=== PATIENT | male | born 1985 | race Caucasian/White ===

== ENCOUNTER 2017-04-09 21:13 | Emergency (ER) | payer SELFPAY ==
[2017-04-09 21:25] VITALS: BP 143/86; RESP 16; TEMP 98.1
--- NOTE | 2017-04-09 21:25 | EDPHY ---
H & P Source: Patient Exam Limitations: No limitations - Personal History Tetanus Vaccine Date: WITHIN 10 YRS - Medical/Surgical History Hx Asthma: Yes Hx Chronic Respiratory Disease: No Hx Diabetes: No Hx Cardiac Disease: No Hx Renal Disease: No Hx Cirrhosis: No Hx Alcoholism: No Hx HIV/AIDS: No Hx Splenectomy or Spleen Trauma: No - Social History Smoking Status: Current every day smoker Time Seen by Provider: 04/09/17 21:24 HPI/ROS: HPI: This is a 31-year-old male who presents with Chief Complaint: Right elbow pain Location: Right elbow Quality: Pain Duration: Several days Signs and Symptoms: No bleeding, no radiation, no numbness, no weakness, no tingling, no incontinence, + decreased range of motion, no swelling, + pain Timing: Intermittent episodes Severity: 08/15 Context: Patient is right-hand dominant, presents with several day history of lateral right elbow pain that is worsened with certain movements and radiates into his mid forearm. 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 Patient missed work on Monday and is requesting a work note. He obtained a tennis elbow brace that he has been wearing with mild improvement. Denies any trauma/injury/paresthesias/radiation/weakness. Has not tried any [id number] medications or applied ice. Modifying Factors: None Comment: ROS: see HPI Constitutional: No fever, no chills, no weight loss Eyes: No blurred vision Respiratory: No shortness of breath, no cough Cardiovascular: No chest pain Gastrointestinal: No nausea, no vomiting no diarrhea Genitourinary: No dysuria Extremities: No myalgias Neurologic: No weakness, no numbness Skin: No rashes Hematologic: No bruising, no bleeding CONSTITUTIONAL: Adult white male, awake and alert, no obvious distress HEENT: Atraumatic and normocephalic. PULMONARY/CHEST: Symmetrical and nontender. no crepitus. Clear to auscultation bilaterally. Good air movement. No accessory muscle usage. ABDOMEN: Soft, nondistended, nontender, no ecchymosis. EXTREMITIES: 2/2 pulses, strength 5/5, right ELBOW: Full extension to 180, flexion to 150, no tenderness over medial epicondyle, moderate tenderness over lateral epicondyle, no effusion, pain with forced extension and supination of forearm. DIP/PIP/MCP flexion/extension intact with good light touch sensation. no deformities, no clubbing, no cyanosis or edema. NEUROLOGICAL: no focal neuro deficits. GCS 15. Light touch sensation intact. SKIN: Warm and dry, no erythema. no rash. Good capillary refill. (Mirna Katz) Constitutional: Initial Vital Signs Temperature (C) 36.7 C 04/09/17 21:23 Heart Rate 81 04/09/17 21:23 Respiratory Rate 16 04/09/17 21:23 Blood Pressure 143/86 H 04/09/17 21:23 O2 Sat (%) 97 04/09/17 21:23 O2 Delivery Mode Room Air Allergies/Adverse Reactions: amoxicillin trihydrate [From Augmentin] Allergy (Intermediate, Verified 21:22) Vomiting potassium clavula *RETIRED-10/17/11 [From Augmentin] Allergy (Intermediate, Verified 04/09/17 21:22) Vomiting Home Medications: Medication Instructions Recorded NO HOME MEDS 11/18/12 Medical Decision Making - Diagnostics Imaging Results: Imaging Impressions Elbow X-Ray 04/09/17 21:38 Impression: Right elbow demonstrates no joint effusion, degenerative changes, or definite fracture. Procedures: The patient was evaluated and managed by the physician case management assistant. I have reviewed this chart and I agree with the findings and plan of care as documented , as indicated by my signature. I am the secondary supervising physician. ( Amelie Torres) Procedure: Splint placement. A right elbow sling was applied by the Emergency Room equine pharmacology technician. After application of the splint I returned and re-examined the patient. The splint was adequately immobilizing the joint and distal to the splint the patient's circulation and sensation was intact. (Mirna Katz) ED Course/Re-evaluation: X-ray and oral medications ordered Given Ultram 100 mg X-ray my read shows no signs of effusion, fracture, dislocation, osteophyte No signs of neurovascular compromise/tenting of skin/compartment syndrome/ extremities and joints examined above and below area of concern and are neurovascularly intact/gouty arthropathy/septic arthritis. Rice rice therapy, Ortho follow-up if symptoms persist for intra-articular steroid injection This patient was seen under the supervision of my secondary supervising physician. I evaluated care for this patient independently. (Mirna Katz) Differential Diagnosis: Differential diagnosis includes but is not limited to radial head fracture, olecranon fracture, elbow dislocation, epicondylitis, olecranon bursitis. (Mirna Katz) - Data Points Medications Given: Discontinued Medications Oxycodone/Acetaminophen (Percocet 5/325mg Prepack#4) 1 btl TAKEHOME EDNOW ONE Stop: 04/09/17 22:33 Last Admin: 04/09/17 22:38 Dose: 1 btl Tramadol HCl (Ultram) 100 mg PO EDNOW ONE Stop: 04/09/17 21:39 Last Admin: 04/09/17 21:49 Dose: 100 mg Departure - Departure Disposition: Home, Routine, Self-Care Clinical Impression: Medial epicondylitis of right elbow Condition: Good Instructions: Tennis Elbow (ED) Additional Instructions: Limit use of your right upper extremity until pain free. Wear the tennis elbow band and/or sling until pain free or seen by orthopedics for follow up. Take Tylenol 650 mg every 4 hours and/or Ibuprofen 600 mg every 8 hours with food as needed for pain. Use Percocet every 6 hours as needed for severe/break through pain. Do not use Tylenol and Percocet concomitantly. Apply ice for 30 minutes at a time; 2-3 times per day for the next 1-2 days. Follow up with Orthopedics in 1-2 weeks if symptoms persist at which time they will evaluate and recommend with you if conservative management versus MRI outpatient is indicated. Referrals: Crow Potter MD [Medical Doctor] - As per Instructions Stand Alone Forms: Work Excuse
[2017-04-09] MEDS ORDERED: traMADol 50 MG TAB PO ONE (21:38)
[2017-04-09] MEDS ORDERED: OXYCODONE/APAP 5/325MG PREPACK#4 BTL TAKEHOME ONE (22:32)
[2017-04-09 22:40] VITALS: PULSE 78; O2SAT 98
== END 2017-04-09 22:40 | disposition home or self-care (01) ==
DX: M77.01 Medial epicondylitis, right elbow (principal); F17.200 Nicotine dependence, unspecified, uncomplicated; J45.909 Unspecified asthma, uncomplicated
CPT/HCPCS: A4565

== ENCOUNTER 2017-07-01 00:21 | Emergency (ER) | payer MEDICAID, OTHER ==
[2017-07-01 00:26] VITALS: BP 136/69
[2017-07-01] MEDS ORDERED: IBUPROFEN 600 MG TAB PO ONE (00:32)
--- NOTE | 2017-07-01 00:39 | EDPHY ---
H & P Stated Complaint: R ankle pain Time Seen by Provider: 07/01/17 00:39 HPI/ROS: HPI CHIEF COMPLAINT: Right ankle pain HISTORY OF PRESENT ILLNESS: Patient is a 31-year-old male, is otherwise healthy with no significant medical history presents emergency room with right lateral ankle pain. Patient states that he rolled his right ankle while putting up at 10 at work. States he had more of an inversion mechanism. He denies any other areas of injury. Denies chest pain or shortness of breath. Denies falling or knee pain. Main complaint right lateral ankle pain. Past Medical History: Denies significant medical history Past Surgical History: Denies significant surgical history Social History: Denies daily use of drugs or alcohol. Smokes tobacco daily. Family History: Noncontributory ROS REVIEW OF SYSTEMS: A comprehensive 10 point review of systems is otherwise negative aside from elements mentioned in the history of present illness. Exam Constitutional triage nursing summary reviewed, vital signs reviewed, awake/ alert. Eyes normal conjunctivae and sclera, EOMI, PERRLA. HENT normal inspection, atraumatic, moist mucus membranes, no epistaxis, neck supple/ no meningismus, no raccoon eyes. Respiratory clear to auscultation bilaterally, normal breath sounds, no respiratory distress, no wheezing. Cardiovascular rate normal, regular rhythm, no murmur, no edema, distal pulses normal. Gastrointestinal soft, non-tender, no rebound, no guarding, normal bowel sounds, no distension, no pulsatile mass. Genitourinary no CVA tenderness. Musculoskeletal right ankle: Mild tender palpation over the lateral right ankle. It Is neurovascularly intact no significant swelling. Good cap refill, good distal pulse, full range of motion, Achilles intact, no signs of compartment syndrome, no midline vertebral tenderness, full range of motion, no calf swelling, no tenderness of extremities, no meningismus, good pulses, neurovascularly intact. Skin pink, warm, & dry, no rash, skin atraumatic. Neurologic awake, alert and oriented x 3, AAOx3, moves all 4 extremities equally, motor intact, sensory intact, CN II-XII intact, normal cerebellar, normal vision, normal speech. Psychiatric normal mood/affect. Heme/Lymph/Immune no lymphadenopathy. Differential Diagnosis: Includes but is not limited to in a particular order ankle sprain, ankle contusion, soft tissue injury, ankle fracture, ligamentous injury Medical Decision Making: Plan for this patient ibuprofen here in the emergency room p.o.. Additionally x-ray right ankle. Re-evaluation: X-ray the right ankle reviewed. Shows no evidence of fracture. Soft tissue swelling noted. Ankle sprain. Recommend he ice it, keep it elevated, walking boot and crutches for comfort and protection. Follow up with Orthopedics as needed. Additionally understands return emergency room if he has any worsening symptoms questions or concerns. Source: Patient - Personal History Current Tetanus Diphtheria and Acellular Pertussis (TDAP): Unsure Tetanus Vaccine Date: WITHIN 10 YRS - Medical/Surgical History Hx Asthma: Yes Hx Chronic Respiratory Disease: No Hx Diabetes: No Hx Cardiac Disease: No Hx Renal Disease: No Hx Cirrhosis: No Hx Alcoholism: No Hx HIV/AIDS: No Hx Splenectomy or Spleen Trauma: No Other PMH: asthma, - Social History Smoking Status: Current every day smoker Constitutional: Initial Vital Signs Temperature (C) 36.8 C 07/01/17 00:23 Heart Rate 66 07/01/17 00:23 Respiratory Rate 12 07/01/17 00:23 Blood Pressure 136/69 H 07/01/17 00:23 O2 Sat (%) 99 07/01/17 00:23 O2 Delivery Mode Room Air Allergies/Adverse Reactions: amoxicillin trihydrate [From Augmentin] Allergy (Intermediate, Verified 00:35) Vomiting potassium clavula *RETIRED-10/17/11 [From Augmentin] Allergy (Intermediate, Verified 07/01/17 00:35) Vomiting Home Medications: Medication Instructions Recorded NO HOME MEDS 11/18/12 Ibuprofen [Motrin (*)] 800 mg PO Q6-8PRN #10 tab 07/01/17 Medical Decision Making - Data Points Medications Given: Discontinued Medications Ibuprofen (Motrin) 600 mg PO EDNOW ONE Stop: 07/01/17 00:33 Last Admin: 07/01/17 00:39 Dose: 600 mg Departure - Departure Disposition: Home, Routine, Self-Care Clinical Impression: Ankle sprain Qualifiers: Encounter type: initial encounter Involved ligament of ankle: unspecified ligament Laterality: right Qualified Code(s): S93.401A - Sprain of unspecified ligament of right ankle, initial encounter Condition: Good Instructions: Ankle Sprain (ED) Additional Instructions: 1. Ice her ankle over the next 48 hr. 2. Ibuprofen for pain control and inflammation. 3. Follow up with Orthopedics as needed. 4. Walking boot and crutches for comfort. Referrals: NONE *PRIMARY CARE P,. [Primary Care Provider] - As per Instructions Eliud Butler MD [Medical Doctor] - As per Instructions Prescriptions: Ibuprofen [Motrin (*)] 800 mg PO Q6-8PRN #10 tab
== END 2017-07-01 01:23 | disposition home or self-care (01) ==
DX: S93.401A Sprain of unspecified ligament of right ankle, initial encounter (principal); F17.200 Nicotine dependence, unspecified, uncomplicated; J45.909 Unspecified asthma, uncomplicated; X50.9XXA Other and unspecified overexertion or strenuous movements or postures, initial encounter; Y92.69 Other specified industrial and construction area as the place of occurrence of the external cause; Y99.0 Civilian activity done for income or pay; Y93.89 Activity, other specified
CPT/HCPCS: L4386

== ENCOUNTER 2017-08-19 20:59 | Emergency (ER) | payer SELFPAY ==
[2017-08-19] MEDS ORDERED: IBUPROFEN 200 MG TAB PO ONE (22:13)
[2017-08-19] MEDS ORDERED: DIAZEPAM 5 MG TAB PO ONE (22:13)
[2017-08-19] MEDS ORDERED: DIAZEPAM 5 MG PREPACK#4 BTL TAKEHOME ONE (22:13)
[2017-08-19] MEDS ORDERED: LIDOCAINE 4%/MENTHOL 1% PATCH TD ONE (22:14)
--- NOTE | 2017-08-19 22:16 | EDPHY ---
H & P Stated Complaint: Mid back pain, lifting tent on a ladder, "felt a pop" Time Seen by Provider: 08/19/17 21:58 HPI/ROS: HPI: The patient presents with midthoracic back pain which began at approximately 4:30 p.m. 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 He felt immediate onset of sharp pain in the midline of his thoracic spine. He also heard a pop. He has had ongoing pain ever since so comes in for evaluation. He describes a constant pain which is worse with movement and relieved when he sits in a chair. He does not have any numbness or tingling of his arms or legs. He does not have any weakness in his arms or legs. He has no prior back injuries. REVIEW OF SYSTEMS Constitutional: No fever, no chills. Eyes: No discharge. ENT: No sore throat. Cardiovascular: No chest pain, no palpitations. Respiratory: No cough, no shortness of breath. Gastrointestinal: No abdominal pain, no vomiting. Genitourinary: No hematuria. Musculoskeletal: No back pain. Skin: No rashes. Neurological: No headache. PMHx: Healthy TRAUMA PHYSICAL General Appearance: Alert, no distress Head: Atraumatic Eyes: Pupils equal, round, reactive ENT, Mouth: No hemotypanium, no oral trauma Neck: Non- tender, trachea midline Respiratory: No chest wall tenderness, no subcutaneous air, lungs clear bilaterallty Cardiovascular: Regular rate and rhythm Abdomen: Abdomen is soft and non-tender, pelvis stable Skin: No lacerations, No abrasion Back: There is tenderness at the midthoracic spine at the midline with paraspinal tenderness bilaterally which is less severe Extremities: Non-tender, full range of motion Neurological: A&Ox3, GCS=15,normal motor function with 5/5 strength in all 4 extremities, normal sensory exam Source: Patient Exam Limitations: No limitations - Personal History Current Tetanus Diphtheria and Acellular Pertussis (TDAP): Yes Tetanus Vaccine Date: WITHIN 10 YRS - Medical/Surgical History Hx Asthma: Yes Hx Chronic Respiratory Disease: No Hx Diabetes: No Hx Cardiac Disease: No Hx Renal Disease: No Hx Cirrhosis: No Hx Alcoholism: No Hx HIV/AIDS: No Hx Splenectomy or Spleen Trauma: No Other PMH: asthma, - Social History Smoking Status: Current every day smoker Constitutional: Initial Vital Signs Temperature (C) 36.7 C 08/19/17 21:00 Heart Rate 72 08/19/17 21:00 Respiratory Rate 18 08/19/17 21:00 Blood Pressure 137/65 H 08/19/17 21:00 O2 Sat (%) 95 08/19/17 21:00 O2 Delivery Mode Room Air Allergies/Adverse Reactions: amoxicillin trihydrate [From Augmentin] Allergy (Intermediate, Verified 21:02) Vomiting potassium clavula *RETIRED-10/17/11 [From Augmentin] Allergy (Intermediate, Verified 08/19/17 21:02) Vomiting Home Medications: Medication Instructions Recorded NO HOME MEDS 11/18/12 Ibuprofen [Motrin (*)] 800 mg PO Q6-8PRN #10 tab 07/01/17 Medical Decision Making Differential Diagnosis: 32-year-old male who with lifting injury which occurred about 6 hr ago now with ongoing midthoracic back pain worse with movement. He has no neurologic deficits. Differential diagnosis includes disc herniation, compression fracture, doubt cauda equina given no neurologic deficits. In the emergency department, patient received medication for pain. X-rays of his thoracic spine were checked because of his midline tenderness. X-rays were unremarkable. He felt better after receiving medication. I will send him home with instructions for anti-inflammatories and Valium as needed. I have advised that he should follow up with the worker's Comp doctor and he will. - Data Points Medications Given: Discontinued Medications Diazepam (Valium) 5 mg PO EDNOW ONE Stop: 08/19/17 22:14 Last Admin: 08/19/17 22:28 Dose: 5 mg Diazepam (Valium 5 Mg Prepack#4) 1 btl TAKEHOME EDNOW ONE Stop: 08/19/17 22:14 Last Admin: 08/19/17 22:28 Dose: 1 btl Ibuprofen (Motrin) 400 mg PO EDNOW ONE Stop: 08/19/17 22:14 Last Admin: 08/19/17 22:28 Dose: 400 mg Miscellaneous Medication (Icy Hot Lidocaine/Menthol 4%/1% Patch) 1 patch TD EDNOW ONE Stop: 08/19/17 22:15 Last Admin: 08/19/17 22:28 Dose: 1 patch Departure - Departure Disposition: Home, Routine, Self-Care Clinical Impression: Acute midline thoracic back pain Condition: Good Instructions: Diazepam (By mouth), Back Pain (ED), Lower Back Exercises (ED) Additional Instructions: Please return to the emergency department if your worse in any way. I recommend you take ibuprofen 400 mg and acetaminophen 650 mg every 6 hr as needed for pain. You can take the Valium as needed for muscle spasm every 6 hr. If you find that the lidocaine patch works you can purchase this over-the- counter. I recommend you make plans to follow up with your worker's Comp doctor for further care. Referrals: NONE *PRIMARY CARE P,. [Primary Care Provider] - As per Instructions Stand Alone Forms: Work Excuse
[2017-08-19 23:03] VITALS: BP 124/83
[2017-08-20] MEDS ORDERED: PATCH REMOVAL 1 EA PATCH TD SCH (21:00)
== END 2017-08-19 23:03 | disposition home or self-care (01) ==
DX: M54.6 Pain in thoracic spine (principal); J45.909 Unspecified asthma, uncomplicated; F17.200 Nicotine dependence, unspecified, uncomplicated